=== PATIENT | female | born 1980 | race Caucasian/White ===

== ENCOUNTER 2019-07-06 14:50 | Emergency (ER) | payer OTHER ==
--- NOTE | 2019-07-06 15:17 | ERPHSYRPT ---
- History of Present Illness Time Seen by Provider: 07/06/19 15:10 Source: patient, family Exam Limitations: no limitations Physician History: 6123 days with generalized sickness, nausea, back pain and, chest pain, vaginal spotting. H/O Hematochromatosis Timing/Duration: day(s) (3) Method of Injury: unknown Quality: aching Back Pain Location: T-spine Severity of Pain-Max: moderate Modifying Factors: Improves With: nothing, cold therapy Associated Symptoms: chills, nausea, dizziness, other (Body ache, not feeling good) Allergies/Adverse Reactions: tape Allergy (Severe, Uncoded 05/11/17 08:26) Blisters Home Medications: Acyclovir 200 mg Cap [Zovirax 200 mg ] 200 mg PO BID 03/16/17 [History] Albuterol Sulfate [Ventolin Hfa] 18 gm IH UD 03/16/17 [History] Ascorbate Calcium [Vitamin C] 500 mg PO DAILY 03/16/17 [History] Calcium Carb/Vitamin D3/Vit K1 [Calcium + D Soft Chewable Tab] 1 ea PO BID 03/16 [History] Cetirizine HCl [Zyrtec] 10 mg PO DAILY 03/16/17 [History] Cholecalciferol (Vitamin D3) [Vitamin D] 1,000 unit PO DAILY 03/16/17 [ History] Cyanocobalamin (Vitamin B-12) [Vitamin B-12] 1,000 mcg PO DAILY 03/16/17 [ History] Mometasone/Formoterol [Dulera 200 Mcg/5 Mcg Inhaler] 13 gm [facility] 03/16/17 [ History] Norgestimate-Ethinyl Estradiol [Ortho-Cyclen] 1 each PO DAILY 03/16/17 [History] Polyethylene Glycol 3350 17 gm [Miralax Powder 17GM PACKET] 17 gm PO UD 03/16 [History] Furosemide 20 mg [Lasix 20 mg] 20 mg PO DAILY 06/29/17 [History] Potassium Chloride 20 Meq [Klor-Con 20 MEQ] 20 meq PO DAILY 06/29/17 [History] SUMAtriptan succinate [Imitrex] 100 mg PO UD 06/29/17 [History] Hx Tetanus, Diphtheria Vaccination/Date Given: No Hx Influenza Vaccination/Date Given: Yes Hx Pneumococcal Vaccination/Date Given: Yes - Review of Systems Constitutional: Chills, Fatigue, Weakness, No Fever Eyes: No Symptoms Ears, Nose, & Throat: No Symptoms Respiratory: No Cough, No Dyspnea Cardiac: Chest Pain, No Edema, No Syncope Abdominal/Gastrointestinal: No Abdominal Pain, No Nausea, No Vomiting, No Diarrhea Genitourinary Symptoms: Vaginal Bleeding, No Dysuria Musculoskeletal: Back Pain, No Neck Pain Skin: No Rash Neurological: Dizziness, No Focal Weakness, No Sensory Changes Psychological: No Symptoms Endocrine: No Symptoms Hematologic/Lymphatic: No No Symptoms All Other Systems: Reviewed and Negative - Past Medical History Pertinent Past Medical History: Yes Neurological History: No Pertinent History ENT History: No Pertinent History Cardiac History: No Pertinent History Respiratory History: Asthma, Sleep Apnea Endocrine Medical History: Liver Disease Musculoskeletal History: Arthritis GI Medical History: No Pertinent History History: No Pertinent History Psycho-Social History: No Pertinent History Female Reproductive Disorders: No Pertinent History Other Medical History: HEMOCHROMATOSIS, PSORIASIS - Past Surgical History Past Surgical History: Yes Neuro Surgical History: No Pertinent History Cardiac: No Pertinent History Respiratory: No Pertinent History Gastrointestinal: No Pertinent History Genitourinary: No Pertinent History Musculoskeletal: Orthopedic Surgery Female Surgical History: No Pertinent History Other Surgical History: Right Knee surgery - Social History Smoking Status: Never smoker Exposure to second hand smoke: No Drug Use: none Patient Lives Alone: No - Nursing Vital Signs Nursing Vital Signs: Initial Vital Signs Temperature 98.2 F 07/06/19 15:15 Pulse Rate 75 07/06/19 15:15 Blood Pressure 134/95 07/06/19 15:15 O2 Sat by Pulse Oximetry 100 07/06/19 15:15 Pain Scale Pain Intensity [Neck] 7 Pain Intensity 7 - Physical Exam General Appearance: no apparent distress, alert, other (Obese) Eye Exam: PERRL/EOMI, eyes nml inspection Ears, Nose, Throat Exam: normal ENT inspection Neck Exam: normal inspection, non-tender, supple, full range of motion, No meningismus, No midline tenderness Respiratory Exam: normal breath sounds, lungs clear, No chest tenderness, No respiratory distress Cardiovascular Exam: regular rate/rhythm, normal heart sounds Gastrointestinal Exam: soft, No tenderness, No mass Extremity Exam: normal inspection, normal range of motion, No calf tenderness, No pedal edema Neurologic Exam: alert, oriented x 3, cooperative, dredge mate II-XII nml as tested, normal mood/affect, nml station & gait, sensation nml, No motor deficits Skin Exam: normal color, warm, dry, No rash Lymphatic Exam: No adenopathy SpO2 Interpretation: normal O2 Delivery: Room Air - Course Nursing assessment & vital signs reviewed: Yes EKG Interpreted by Me: Sinus [place], NORMAL AXIS, NORMAL INTERVALS, NORMAL QRS, Q -wave, NORMAL ST-T - CT Exams Abdomen/Pelvis CT Interpretation: Discussed w/radiologist, Other (cconstipation, hiatal hernia , fatty liver, splenomegaly, ovarian cyst, diverticulosis.) Ordered Tests: Active Orders 24 hr Category Date Time Status EKG-ER Only STAT Care 07/06/19 15:23 Active IV Insertion STAT Care 07/06/19 15:23 Active ABDOMEN AND PELVIS W CONTRAST [CT] Stat Exams 07/06/19 15:26 Taken CHEST 1 VIEW (PORTABLE) Stat Exams 07/06/19 15:24 Taken CBC W DIFF Stat Lab 07/06/19 15:50 Completed CMP Stat Lab 07/06/19 15:50 Completed HCG QUALITATIVE,SERUM Stat Lab 07/06/19 Completed LIPASE Stat Lab 07/06/19 15:50 Completed Lactic Acid Stat Lab 07/06/19 15:50 Completed Occult Blood, Other Screening Stat Lab 07/06/19 15:24 Uncollected TROPONIN Stat Lab 07/06/19 15:50 Completed Urine Triage Profile Stat Lab 07/06/19 Completed Medication Summary Generic Name Dose Route Start Last Admin Trade Name Freq PRN Reason Stop Dose Admin Sodium Chloride 1,000 mls @ 250 mls/hr 07/06/19 15:30 07/06/19 16:22 Sodium Chloride 0.9% 1000 Ml IV 08/05/19 15:29 250 mls/hr .Q4H JUSTYNA Administration Discontinued Medications Generic Name Dose Route Start Last Admin Trade Name Freq PRN Reason Stop Dose Admin Morphine Sulfate 2 mg 07/06/19 15:23 07/06/19 16:22 Morphine Sulfate 2 Mg Inj IV 07/06/19 15:24 2 mg STAT ONE Administration Morphine Sulfate Confirm 07/06/19 16:10 Morphine Sulfate 2 Mg Inj Administered 07/06/19 16:11 Dose 2 mg .ROUTE .STK-MED ONE Ondansetron HCl 4 mg 07/06/19 15:23 07/06/19 16:22 Zofran 4 Mg/2 Ml Vial IV 07/06/19 15:24 4 mg STAT ONE Administration Ondansetron HCl Confirm 07/06/19 16:10 Zofran 4 Mg/2 Ml Vial Administered 07/06/19 16:11 Dose 4 mg .ROUTE .STK-MED ONE Lab/Rad Data: Laboratory Result Diagrams 07/06/19 15:50 07/06/19 15:50 Laboratory Results 07/06/19 07/06/19 07/06/19 Range/Units Unknown Unknown Unknown WBC (4.0-10.5) K/mm3 RBC (4.1-5.4) M/mm3 Hgb (12.0-16.0) gm/dl Hct (35-47) % MCV (78-100) fl MCH (26-32) pg MCHC (32-36) g/dl RDW (11.5-14.0) % Plt Count (150-450) K/mm3 MPV (6-9.5) fl Gran % (36.0-66.0) % Eos # (Auto) (0-0.5) Absolute Lymphs (auto) (1.0-4.6) Absolute Monos (auto) (0.0-1.3) Lymphocytes % (24.0-44.0) % Monocytes % (0.0-12.0) % Eosinophils % (0.00-5.0) % Basophils % (0.0-0.4) % Absolute Granulocytes (1.4-6.9) Basophils # (0-0.4) Sodium (137-145) mmol/L Potassium (3.5-5.1) mmol/L Chloride (98-107) mmol/L Carbon Dioxide (22-30) mmol/L Anion Gap (5-15) MEQ/L BUN (7-17) mg/dL Creatinine (0.52-1.04) mg/dL Estimated GFR ML/MIN Glucose (74-106) mg/dL Lactic Acid (0.4-2.0) Calcium (8.4-10.2) mg/dL Total Bilirubin (0.2-1.3) mg/dL AST (14-36) U/L ALT (0-35) U/L Alkaline Phosphatase (38-126) U/L Troponin I (0.000-0.034) ng/mL Serum Total Protein (6.3-8.2) g/dL Albumin (3.5-5.0) g/dL Lipase (23-300) U/L Serum , Qual NEGATIVE (Negative) Urine Opiates Level NEGATIVE (NEGATIVE) Ur Methadone NEGATIVE (NEGATIVE) Urine Barbiturates NEGATIVE (NEGATIVE) Ur Phencyclidine (PCP) NEGATIVE (NEGATIVE) Urine Amphetamine NEGATIVE (NEGATIVE) U Benzodiazepine Level NEGATIVE (NEGATIVE) Urine Cocaine NEGATIVE (NEGATIVE) Urine Marijuana (THC) NEGATIVE (NEGATIVE) Influenza Type A Ag NEGATIVE (NEGATIVE) Influenza Type B Ag NEGATIVE (NEGATIVE) RSV (PCR) NEGATIVE (Negative) Group A Strep Antibody NEGATIVE (NEGATIVE) 07/06/19 07/06/19 07/06/19 Range/Units 15:50 15:50 15:50 WBC 8.2 (4.0-10.5) K/mm3 RBC 4.79 (4.1-5.4) M/mm3 Hgb 14.2 (12.0-16.0) gm/dl Hct 43.1 (35-47) % MCV 90.0 (78-100) fl MCH 29.6 (26-32) pg MCHC 32.9 (32-36) g/dl RDW 13.8 (11.5-14.0) % Plt Count 223 (150-450) K/mm3 MPV 10.6 H (6-9.5) fl Gran % 47.4 (36.0-66.0) % Eos # (Auto) 0.22 (0-0.5) Absolute Lymphs (auto) 3.52 (1.0-4.6) Absolute Monos (auto) 0.49 (0.0-1.3) Lymphocytes % 42.8 (24.0-44.0) % Monocytes % 6.0 (0.0-12.0) % Eosinophils % 2.7 (0.00-5.0) % Basophils % 1.1 (0.0-0.4) % Absolute Granulocytes 3.90 (1.4-6.9) Basophils # 0.09 (0-0.4) Sodium 142 (137-145) mmol/L Potassium 3.5 (3.5-5.1) mmol/L Chloride 104 (98-107) mmol/L Carbon Dioxide 29 (22-30) mmol/L Anion Gap 12.2 (5-15) MEQ/L BUN 10 (7-17) mg/dL Creatinine 0.73 (0.52-1.04) mg/dL Estimated GFR > 60.0 ML/MIN Glucose 91 (74-106) mg/dL Lactic Acid 0.7 (0.4-2.0) Calcium 9.3 (8.4-10.2) mg/dL Total Bilirubin 0.70 (0.2-1.3) mg/dL AST 24 (14-36) U/L ALT 15 (0-35) U/L Alkaline Phosphatase 59 (38-126) U/L Troponin I < 0.012 (0.000-0.034) ng/mL Serum Total Protein 8.2 (6.3-8.2) g/dL Albumin 4.2 (3.5-5.0) g/dL Lipase 141 (23-300) U/L Serum , Qual (Negative) Urine Opiates Level (NEGATIVE) Ur Methadone (NEGATIVE) Urine Barbiturates (NEGATIVE) Ur Phencyclidine (PCP) (NEGATIVE) Urine Amphetamine (NEGATIVE) U Benzodiazepine Level (NEGATIVE) Urine Cocaine (NEGATIVE) Urine Marijuana (THC) (NEGATIVE) Influenza Type A Ag (NEGATIVE) Influenza Type B Ag (NEGATIVE) RSV (PCR) (Negative) Group A Strep Antibody (NEGATIVE) - Progress Progress: improved Progress Note: 07/06/19 18:53 advised patient to follow up with a harvester operator, just silas just, PSYCHOLOGIST RESEARCH ASSISTANT and PCP. 07/06/19 18:57 no life or limb threatening condition on discharge Counseled pt/family regarding: lab results, diagnosis, need for follow-up, rad results - Departure Departure Disposition: Home Clinical Impression: Weakness, Splenomegaly, Hiatal hernia, Fatty liver, Diverticulosis Constipation Qualifiers: Constipation type: unspecified constipation type Qualified Code(s): K59.00 - Constipation, unspecified Ovarian cyst Qualifiers: Laterality: right Qualified Code(s): N83.201 - Unspecified ovarian cyst, right side Condition: Stable Critical Care Time: No Referrals: MONTRELL CAPONE [Primary Care Provider] - Instructions: Constipation in Adults, Hiatal Hernia, Nonalcoholic Fatty Liver Disease (DC), Splenectomy (DC), Diverticulosis Plan of Treatment: [id number] laxative. Take Tylenol or Motrin as needed for pain. Take [id number] Prilosec.
[2019-07-06] MEDS ORDERED: Zofran 4 MG/2 ML VIAL IV ONE (15:23)
[2019-07-06] MEDS ORDERED: MORPHINE SULFATE 2 MG INJ IV ONE (15:23)
[2019-07-06] MEDS ORDERED: Sodium Chloride 0.9% 1000 ML 1,000 ML IV SCH (15:30)
[2019-07-06 16:07] LABS: BASOPHIL % 1.1 % (0.0-0.4); Basophil (Absolute #) 0.09 (0-0.4); Eosinophil % 2.7 % (0.00-5.0); Eosinophil (Absolute #) 0.22 (0-0.5); Hematocrit 43.1 % (35-47); Hemoglobin 14.2 gm/dl (12.0-16.0); Lymphocyte (Absolute #) 3.52 (1.0-4.6); Lymphocytes % 42.8 % (24.0-44.0); Mean Corpuscular Hemoglobin 29.6 pg (26-32); Mean Corpuscular Hgb Concent. 32.9 g/dl (32-36); Mean Platelet Volume 10.6 fl (6-9.5); Monocyte (Absolute #) 0.49 (0.0-1.3); Neutrophil % 47.4 % (36.0-66.0); Platelet Count 223 K/mm3 (150-450); Red Blood Count 4.79 M/mm3 (4.1-5.4); Red Cell Distribution Width 13.8 % (11.5-14.0); White Blood Count 8.2 K/mm3 (4.0-10.5)
[2019-07-06] MEDS ORDERED: Sodium Chloride 0.9% 1000 ML 1,000 ML ONE (16:10)
[2019-07-06] MEDS ORDERED: MORPHINE SULFATE 2 MG INJ ONE (16:10)
[2019-07-06] MEDS ORDERED: Zofran 4 MG/2 ML VIAL ONE (16:10)
[2019-07-06 16:29] LABS: ALBUMIN 4.2 g/dL (3.5-5.0); ALKALINE PHOSPHATASE 59 U/L (38-126); ANION GAP 12.2 MEQ/L (5-15); BLOOD UREA NITROGEN 10 mg/dL (7-17); CHLORIDE 104 mmol/L (98-107); Calcium 9.3 mg/dL (8.4-10.2); Carbon Dioxide 29 mmol/L (22-30); Creatinine 1 0.73 mg/dL (0.52-1.04); Glucose 91 mg/dL (74-106); LIPASE 141 U/L (23-300); Potassium 3.5 mmol/L (3.5-5.1); SGOT/AST 24 U/L (14-36); SGPT/ALT 15 U/L (0-35); SODIUM 142 mmol/L (137-145); TROPONIN < 0.012 ng/mL (0.000-0.034); Total Protein 8.2 g/dL (6.3-8.2)
[2019-07-06 17:25] LABS: Amphetamine,Urine NEGATIVE (NEGATIVE); Barbiturate,Urine NEGATIVE (NEGATIVE); Benzodiazepine,Urine NEGATIVE (NEGATIVE); Cocaine,Urine NEGATIVE (NEGATIVE); Methadone,Urine NEGATIVE (NEGATIVE); Opiate,Urine NEGATIVE (NEGATIVE); PCP,Urine NEGATIVE (NEGATIVE); THC,Urine NEGATIVE (NEGATIVE)
[2019-07-06 17:52] LABS: Group A Strep NEGATIVE (NEGATIVE); INFLUENZA A NEGATIVE (NEGATIVE); INFLUENZA B NEGATIVE (NEGATIVE); RESPIRATORY SYNCTIAL VIRUS NEGATIVE (Negative)
[2019-07-06 18:27] VITALS: BP 136/90; PULSE 70; O2SAT 99
--- NOTE | 2019-07-07 08:40 | XRAY ---
Indication: Chest and back pain. Nausea and vomiting. Multiple contiguous axial images obtained through the abdomen and pelvis using 80 cc Isovue 370 contrast only. Comparison: January 24, 2018. Lung bases remain clear. Heart is not enlarged. Stable small hiatal hernia. Noncontrasted stomach and bowel loops appear nonobstructed. Again normal appendix. There is now mild diffuse scattered colonic fecal debris throughout with stable mild scattered diverticulosis. Again 3.5 cm right ovary cyst. No free fluid/air. Spleen remains enlarged again measuring 13 cm. Remaining liver, gallbladder, pancreas, spleen, adrenal glands, kidneys, ureters, bladder, uterus, and aorta appear unremarkable. No pathologic retroperitoneal lymphadenopathy. Osseous structures intact. Impression: 1. New mild fecal stasis without obstruction. 2. Stable small hiatal hernia, colonic diverticulosis, splenomegaly, and 3.5 cm right ovary cyst. 3. Remaining CT abdomen/pelvis with contrast exam is negative. CT DI 30.37
--- NOTE | 2019-07-07 08:44 | XRAY ---
Indication: Chest pain, weakness, and cold symptoms. Comparison: December 25, 2016. Portable chest again demonstrates normal heart, lungs, and bony thorax.
== END 2019-07-06 19:22 | disposition home or self-care (01) ==
LOC: ED 14:50
DX: K59.00 Constipation, unspecified (principal); N83.201 Unspecified ovarian cyst, right side; R53.1 Weakness; R16.1 Splenomegaly, not elsewhere classified; K44.9 Diaphragmatic hernia without obstruction or gangrene; K76.0 Fatty (change of) liver, not elsewhere classified; K57.90 Diverticulosis of intestine, part unspecified, without perforation or abscess without bleeding; R11.0 Nausea; M54.5 Low back pain; R07.9 Chest pain, unspecified; N93.9 Abnormal uterine and vaginal bleeding, unspecified; Z79.899 Other long term (current) drug therapy
CPT/HCPCS: 36000; 36415; 71045; 74177; 80053; 80307; 81025; 83605; 83690; 84484; 85025; 87631; 87651; 93005; 96360; 96361; 96374; 96375; 99284; J2270; J2405

== ENCOUNTER 2021-01-30 09:08 | Emergency (ER) | payer OTHER ==
[2021-01-30] MEDS ORDERED: MORPHINE SULFATE 4 MG INJ IM ONE (09:57)
--- NOTE | 2021-01-30 10:03 | ERPHSYRPT ---
- History of Present Illness Time Seen by Provider: 01/30/21 09:22 Source: patient Exam Limitations: no limitations Patient Subjective Stated Complaint: pt states she thinks she may be having a reaction to her new med, she took avsola 6-8 weeks ago and now is having sob, p ain and stiffness Triage Nursing Assessment: pt alert, resp easy, face mask in place, skin w/d/p. right leg swollen.in no distress Physician History: 40 years old female with history of psoriasis recently started on infliximab, hemochromatosis, arthritis, lymphedema right lower extremity, morbid obesity, obstructive sleep apnea presented in the ER with 4 to 5-week history of increasing joint aches and pains along with pain all over her body and occasionally getting shortness of breath with using mask on. Patient thinks her symptoms are getting worse since she was placed on infliximab infusion 7 weeks agosupposed to have another infusion early next week. She thinks having allergic reaction to infliximab that all her symptoms are getting worse. No chest pain, shortness of breath at baseline which is a little worse occasionally without permanent symptoms. No recent fever or chills reported. Timing/Duration: week(s), worse Severity: moderate Modifying Factors: Worsens With: medication Associated Symptoms: shortness of breath, malaise Allergies/Adverse Reactions: bee venom protein (honey bee) Allergy (Verified 01/30/21 09:25) methotrexate Allergy (Verified 01/30/21 09:25) tape Allergy (Severe, Uncoded 01/30/21 09:25) Blisters Home Medications: Albuterol Sulfate [Ventolin Hfa] 18 gm IH UD 03/16/17 [History] Calcium Carb/Vitamin D3/Vit K1 [Calcium + D Soft Chewable Tab] 1 ea PO BID 03/16/17 [History] Cetirizine HCl [Zyrtec] 10 mg PO DAILY 03/16/17 [History] Cholecalciferol (Vitamin D3) [Vitamin D] 1,000 unit PO DAILY 03/16/17 [History] Cyanocobalamin (Vitamin B-12) [Vitamin B-12] 1,000 mcg PO DAILY 03/16/17 [History] Mometasone/Formoterol [Dulera 200 Mcg/5 Mcg Inhaler] 13 gm IH HS 03/16/17 [History] Norgestimate-Ethinyl Estradiol [Ortho-Cyclen] 1 each PO DAILY 03/16/17 [History] Furosemide 20 mg [Lasix 20 mg] 20 mg PO DAILY 06/29/17 [History] Potassium Chloride 20 Meq [Klor-Con 20 MEQ] 20 meq PO DAILY 06/29/17 [History] Infliximab-Axxq [Avsola] 1 ea WEEKLY PRN 01/30/21 [History] Hx Tetanus, Diphtheria Vaccination/Date Given: No Hx Influenza Vaccination/Date Given: Yes Hx Pneumococcal Vaccination/Date Given: No Immunizations Up to Date: No Travel Risk - International Travel Have you traveled outside of the country in past 3 weeks: No - Coronavirus Screening Are you exhibiting any of the following symptoms?: No Close contact with a COVID-19 positive Pt in past 14-21 Days: No - Vaccine Status Have you recieved a Covid-19 vaccination: Yes Parquetry Layer: Moderna - Vaccination Dates Date of 2cond Vaccination (if applicable): october 2020 - Review of Systems Constitutional: Fatigue Eyes: No Symptoms Ears, Nose, & Throat: No Symptoms Respiratory: Dyspnea, Dyspnea on Exertion (HODGE) Cardiac: No Symptoms Abdominal/Gastrointestinal: No Symptoms Genitourinary Symptoms: No Symptoms Musculoskeletal: Arthralgias, Joint Pain, Myalgias Skin: Pruritis, Rash Neurological: No Symptoms Psychological: Anxiety Endocrine: No Symptoms Hematologic/Lymphatic: No Symptoms Immunological/Allergic: No Symptoms - Past Medical History Pertinent Past Medical History: Yes Neurological History: No Pertinent History ENT History: No Pertinent History Cardiac History: No Pertinent History Respiratory History: Asthma, Sleep Apnea Endocrine Medical History: Liver Disease Musculoskeletal History: Arthritis GI Medical History: No Pertinent History History: No Pertinent History Psycho-Social History: No Pertinent History Female Reproductive Disorders: No Pertinent History Other Medical History: HEMOCHROMATOSIS, PSORIASIS - Past Surgical History Past Surgical History: Yes Neuro Surgical History: No Pertinent History Cardiac: No Pertinent History Respiratory: No Pertinent History Gastrointestinal: No Pertinent History Genitourinary: No Pertinent History Musculoskeletal: Orthopedic Surgery Female Surgical History: No Pertinent History Other Surgical History: Right Knee surgery - Social History Smoking Status: Never smoker Exposure to second hand smoke: No Drug Use: none Patient Lives Alone: No - Female History Hx Last Menstrual Period: last week Hx Now: No - Nursing Vital Signs Nursing Vital Signs: Initial Vital Signs Temperature 97.2 F 01/30/21 09:16 Pulse Rate 91 H 01/30/21 09:16 Respiratory Rate 24 01/30/21 09:16 Blood Pressure 130/112 01/30/21 09:16 O2 Sat by Pulse Oximetry 98 01/30/21 09:16 Pain Scale Pain Intensity 8 - Physical Exam General Appearance: no apparent distress, alert, anxiety Eye Exam: PERRL/EOMI, eyes nml inspection Ears, Nose, Throat Exam: normal ENT inspection, TMs normal, pharynx normal Neck Exam: normal inspection, non-tender, full range of motion Respiratory Exam: normal breath sounds, lungs clear Cardiovascular Exam: regular rate/rhythm, normal heart sounds Gastrointestinal/Abdomen Exam: soft, normal bowel sounds, No tenderness Back Exam: normal inspection, normal range of motion Extremity Exam: other (Right lower extremity lymphedema. No signs of cellulitis in either extremity. Not definite tenderness.) Neurologic Exam: alert, oriented x 3, cooperative, drafter construction II-XII nml as tested, sensation nml, No motor deficits Skin Exam: rash SpO2 Interpretation: normal SpO2: 98 O2 Delivery: Room Air - Course EKG Interpreted by Me: RATE (65), Sinus Rhythm, NORMAL AXIS, NORMAL INTERVALS Ordered Tests: Active Orders 24 hr Category Date Time Status EKG-ER Only STAT Care 01/30/21 09:57 Active IV Insertion STAT Care 01/30/21 09:57 Active CHEST 1 VIEW (PORTABLE) Stat Exams 01/30/21 09:58 Completed CBC W DIFF Stat Lab 01/30/21 10:23 Completed HCG,QUALITATIVE URINE Routine Lab 01/30/21 10:25 Completed TROPONIN Q3H Lab 01/30/21 13:00 Ordered TROPONIN Q3H Lab 01/30/21 16:00 Ordered TROPONIN Q3H Lab 01/30/21 19:00 Ordered TROPONIN Q3H Lab 01/30/21 22:00 Ordered UA W/RFX UR CULTURE Stat Lab 01/30/21 10:23 Completed Medication Summary Discontinued Medications Generic Name Dose Route Start Last Admin Trade Name Freq PRN Reason Stop Dose Admin Morphine Sulfate 4 mg 01/30/21 09:57 01/30/21 10:15 Morphine Sulfate 4 Mg Inj IM 01/30/21 09:58 4 mg STAT ONE Administration Morphine Sulfate Confirm 01/30/21 10:15 Morphine Sulfate 4 Mg Inj Administered 01/30/21 10:16 Dose 4 mg .ROUTE .STK-MED ONE Lab/Rad Data: Laboratory Result Diagrams 01/30/21 10:23 01/30/21 10:15 Laboratory Results 01/30/21 01/30/21 01/30/21 Range/Units 10:25 10:23 10:23 WBC 6.3 (4.0-10.5) K/mm3 RBC 5.17 (4.1-5.4) M/mm3 Hgb 14.9 (12.0-16.0) gm/dl Hct 46.1 (35-47) % MCV 89.2 (78-100) fl MCH 28.8 (26-32) pg MCHC 32.3 (32-36) g/dl RDW 14.2 H (11.5-14.0) % Plt Count 248 (150-450) K/mm3 MPV 10.2 (7.5-11.0) fl Gran % 56.7 (36.0-66.0) % Eos # (Auto) 0.21 (0-0.5) Absolute Lymphs (auto) 2.06 (1.0-4.6) Absolute Monos (auto) 0.35 (0.0-1.3) Lymphocytes % 32.7 (24.0-44.0) % Monocytes % 5.6 (0.0-12.0) % Eosinophils % 3.3 (0.00-5.0) % Basophils % 1.7 (0.0-0.4) % Absolute Granulocytes 3.57 (1.4-6.9) Basophils # 0.11 (0-0.4) Sodium Direct (138-146) mmol/L Potassium (3.5-4.9) mmol/L Chloride (98-109) mmol/L Carbon Dioxide (24-29) mmol/L Venous BUN (8-26) mg/dL Creatinine (0.6-1.3) mg/dL Glucose (70-105) mg/dL Ionized Calcium (1.12-1.32) mmol/L Troponin (0.00-0.03) ng/mL Urine Color STRAW (YELLOW) Urine Appearance CLEAR (CLEAR) Urine pH 7.0 (5-6) Ur Specific [place] 1.005 (1.005-1.025) Urine Protein NEGATIVE (Negative) Urine Ketones NEGATIVE (NEGATIVE) Urine Blood SMALL (0-5) Nicolas/ul Urine Nitrite NEGATIVE (NEGATIVE) Urine Bilirubin NEGATIVE (NEGATIVE) Urine Urobilinogen NEGATIVE (0-1) mg/dL Ur Leukocyte Esterase NEGATIVE (NEGATIVE) Urine WBC (Auto) 0-2 (0-5) /HPF Urine RBC (Auto) 0-2 (0-2) /HPF U Epithel Cells (Auto) RARE (FEW) /HPF Urine Bacteria (Auto) RARE (NEGATIVE) /HPF Urine Culture Reflexed NO (NO) Urine Glucose NEGATIVE (NEGATIVE) mg/dL Urine HCG, Qual NEGATIVE (Negative) 01/30/21 Range/Units 10:15 WBC (4.0-10.5) K/mm3 RBC (4.1-5.4) M/mm3 Hgb (12.0-16.0) gm/dl Hct (35-47) % MCV (78-100) fl MCH (26-32) pg MCHC (32-36) g/dl RDW (11.5-14.0) % Plt Count (150-450) K/mm3 MPV (7.5-11.0) fl Gran % (36.0-66.0) % Eos # (Auto) (0-0.5) Absolute Lymphs (auto) (1.0-4.6) Absolute Monos (auto) (0.0-1.3) Lymphocytes % (24.0-44.0) % Monocytes % (0.0-12.0) % Eosinophils % (0.00-5.0) % Basophils % (0.0-0.4) % Absolute Granulocytes (1.4-6.9) Basophils # (0-0.4) Sodium Direct 139 (138-146) mmol/L Potassium 3.9 (3.5-4.9) mmol/L Chloride 101 (98-109) mmol/L Carbon Dioxide 31 H (24-29) mmol/L Venous BUN 14 (8-26) mg/dL Creatinine 0.7 (0.6-1.3) mg/dL Glucose 101 (70-105) mg/dL Ionized Calcium 1.17 (1.12-1.32) mmol/L Troponin 0.00 (0.00-0.03) ng/mL Urine Color (YELLOW) Urine Appearance (CLEAR) Urine pH (5-6) Ur Specific [place] (1.005-1.025) Urine Protein (Negative) Urine Ketones (NEGATIVE) Urine Blood (0-5) Nicolas/ul Urine Nitrite (NEGATIVE) Urine Bilirubin (NEGATIVE) Urine Urobilinogen (0-1) mg/dL Ur Leukocyte Esterase (NEGATIVE) Urine WBC (Auto) (0-5) /HPF Urine RBC (Auto) (0-2) /HPF U Epithel Cells (Auto) (FEW) /HPF Urine Bacteria (Auto) (NEGATIVE) /HPF Urine Culture Reflexed (NO) Urine Glucose (NEGATIVE) mg/dL Urine HCG, Qual (Negative) - Progress Progress: improved, re-examined Progress Note: 01/30/21 11:28 40 years old is evaluated for generalized body aches fatigue and tiredness going on for quite some time after she received infliximab infusion. She is given morphine for symptomatic relief, on reevaluation her pain is improved. She has normal white count, grossly unremarkable chemistries. No UTI. Chest x-ray negative for any acute cardiopulmonary findings. I believe patient has symptoms secondary to infliximab plus her anxiety making it more worse. She is advised to follow-up with Dr. Turner a rn care manager to discuss in detail about the continuation of infusions. At this point I do not think patient needs any further work-up in the ER and is stable for discharge with outpatient follow-up. Discussed on symptoms of worsening needing return to ER which she seems understanding. Counseled pt/family regarding: lab results, diagnosis, need for follow-up, rad results - Departure Departure Disposition: Home Clinical Impression: Generalized body aches Asthma Qualifiers: Asthma severity: mild Asthma persistence: intermittent Asthma complication type: unspecified Qualified Code(s): J45.20 - Mild intermittent asthma, uncomplicated Condition: Stable Critical Care Time: No Referrals: MONTRELL LICONA [Primary Care Provider] - (1-2 days for reevaluation) JACQUIE TURNER MD [NON-STAFF PHY W/O PRIVILEGES] - (Call today) Instructions: Adverse Drug Reactions, Adult (DC) Additional Instructions: Drink plenty of fluids. Take Tylenol as needed for pain. Follow-up with your primary care and primary rn care manager for reevaluation. Return to ER for any worsening.
[2021-01-30] MEDS ORDERED: MORPHINE SULFATE 4 MG INJ ONE (10:15)
[2021-01-30 10:23] LABS: Absolute Neutrophil Ct (ANC) 3.57 (1.4-6.9); BASOPHIL % 1.7 % (0.0-0.4); Basophil (Absolute #) 0.11 (0-0.4); Eosinophil % 3.3 % (0.00-5.0); Eosinophil (Absolute #) 0.21 (0-0.5); Hematocrit 46.1 % (35-47); Hemoglobin 14.9 gm/dl (12.0-16.0); Lymphocyte (Absolute #) 2.06 (1.0-4.6); Lymphocytes % 32.7 % (24.0-44.0); Mean Cell Volume 89.2 fl (78-100); Mean Corpuscular Hemoglobin 28.8 pg (26-32); Mean Corpuscular Hgb Concent. 32.3 g/dl (32-36); Mean Platelet Volume 10.2 fl (7.5-11.0); Monocyte (Absolute #) 0.35 (0.0-1.3); Monocytes % 5.6 % (0.0-12.0); Neutrophil % 56.7 % (36.0-66.0); Platelet Count 248 K/mm3 (150-450); Red Blood Count 5.17 M/mm3 (4.1-5.4); Red Cell Distribution Width 14.2 % (11.5-14.0); White Blood Count 6.3 K/mm3 (4.0-10.5)
[2021-01-30 10:33] LABS: Appearance CLEAR (CLEAR); Bacteria RARE /HPF (NEGATIVE); Bilirubin NEGATIVE (NEGATIVE); Blood SMALL Ery/ul (0-5); Epithelial Cells RARE /HPF (FEW); Glucose NEGATIVE (NEGATIVE); Ketones NEGATIVE (NEGATIVE); Leukocyte Esterase NEGATIVE (NEGATIVE); Nitrite NEGATIVE (NEGATIVE); Protein,Urine Dip NEGATIVE (Negative); RBC 0-2 /HPF (0-2); Specific Gravity 1.005 (1.005-1.025); Urobilinogen NEGATIVE mg/dL (0-1); WBC 0-2 /HPF (0-5)
--- NOTE | 2021-01-30 10:42 | XRAY ---
Indication: Short of breath. Comparison: November 06, 2019. Portable chest again demonstrates normal heart, lungs, and bony thorax.
[2021-01-30 10:45] LABS: ISTAT CREA 0.7 mg/dL (0.6-1.3)
[2021-01-30 11:29] VITALS: BP 140/82; PULSE 70
[2021-01-30 11:32] VITALS: O2SAT 98
== END 2021-01-30 11:42 | disposition home or self-care (01) ==
LOC: ED 09:08
DX: J45.20 Mild intermittent asthma, uncomplicated (principal)
CPT/HCPCS: 36415; 71045; 80047; 81001; 84484; 84703; 85025; 93005; 96372; 99284; J2270

== ENCOUNTER 2022-01-06 07:09 | Day surgery (SDC) | payer OTHER ==
[~2022-01-06 07:09] MED LIST: ASTRINGYN 8 GM TP ONE; XYLOCAINE 1%/Epi 1:100000 MDV 20 ML ONE
[2022-01-06] MEDS ORDERED: DUONEB 0.5-3 MG/3 ml Neb IH ONE ×2 (07:10→07:51)
[2022-01-06] MEDS ORDERED: solu-MEDROL IV SCH (07:30)
[2022-01-06] MEDS ORDERED: Lactated Ringers 1,000 ML IV SCH ×2 (07:30)
[2022-01-06] MEDS ORDERED: Pepcid 20 MG VIAL IV SCH (07:30)
[2022-01-06] MEDS ORDERED: Reglan 10 MG/2 ML IV SCH (07:30)
[2022-01-06] MEDS ORDERED: Transderm Scop 1.5MG Patch TOP PRN (07:30)
[2022-01-06] MEDS ORDERED: Reglan 10 MG/2 ML ONE (07:40)
[2022-01-06] MEDS ORDERED: Transderm Scop 1.5MG Patch ONE (07:40)
[2022-01-06] MEDS ORDERED: Pepcid 20 MG VIAL IV ONE (07:40)
[2022-01-06] MEDS ORDERED: Lactated Ringers 1,000 ML IV ONE (07:40)
[2022-01-06] MEDS ORDERED: CEFAZOLIN 2 GM-D5W BAG** 2 GM/50 ML ML IV SCH (08:00)
[2022-01-06 08:16] LABS: ALKALINE PHOSPHATASE 56 U/L (38-126); ANION GAP 12.2 MEQ/L (5-15); BLOOD UREA NITROGEN 16 mg/dL (7-17); CHLORIDE 103 mmol/L (98-107); Calcium 8.6 mg/dL (8.4-10.2); Carbon Dioxide 25 mmol/L (22-30); EST GLOMERULAR FILTRATION RATE > 60.0 ML/MIN; Glucose 88 mg/dL (74-106); Potassium 4.1 mmol/L (3.5-5.1); SGOT/AST 27 U/L (14-36); SGPT/ALT 21 U/L (0-35); SODIUM 137 mmol/L (137-145); Total Protein 7.9 g/dL (6.3-8.2)
[2022-01-06] MEDS ORDERED: Pre-Attached Lta Kit TP ONE (09:02)
[2022-01-06] MEDS ORDERED: Versed 2 MG/2 ML Injection ONE (09:09)
[2022-01-06] MEDS ORDERED: SUBLIMAZE 100 MCG/2 ML ONE (09:10)
[2022-01-06] MEDS ORDERED: PHENYLEPHRINE HCL ONE (09:43)
[2022-01-06] MEDS ORDERED: DIPRIVAN 200 MG/20 ML IV ONE (09:43)
[2022-01-06] MEDS ORDERED: Ephedrine Sulfate 50 MG/ML ONE (09:43)
[2022-01-06] MEDS ORDERED: Zofran 4 MG/2 ML VIAL ONE (09:43)
[2022-01-06 14:14] VITALS: O2SAT 97
[2022-01-06 15:26] VITALS: BP 145/91; PULSE 82
[2022-01-06 19:25] LABS: Appearance CLEAR (CLEAR); Bilirubin NEGATIVE (NEGATIVE); Dipstick done @ ? MAIN LAB; Glucose NEGATIVE (NEGATIVE); Ketones NEGATIVE (NEGATIVE); Nitrite NEGATIVE (NEGATIVE); Ph 6.5 (5-6); Protein,Urine Dip NEGATIVE (Negative); RBC NEGATIVE Ery/ul (0-5); Urobilinogen 0.2 mg/dL (0-1)
--- NOTE | 2022-01-07 11:29 | OP ---
SURGERY DATE/TIME: 01/06/2022911 PREOPERATIVE DIAGNOSIS: Severe cervical dysplasia. POSTOPERATIVE DIAGNOSIS: Severe cervical dysplasia. PROCEDURE: Loop electrosurgical excision procedure (LEEP). SURGEON: Dg Hamm D.O. BOAT FINISHER: Aditi Hwang instructor adjunct surgical technician. ANESTHESIA: Spinal. ESTIMATED BLOOD LOSS: Minimal. COMPLICATIONS: None. INDICATIONS: The risks, benefits, indications and alternatives of the procedure were reviewed with the patient prior to procedure. The patient understood the risk of infection, bleeding, incompetent cervix, pelvic infection associated with this surgery and desires to have this surgery as a possible means to alleviate her current medical condition. DESCRIPTION OF PROCEDURE AND FINDINGS: At this point the patient is taken to the operating room and given spinal anesthesia. Shhe was prepped and draped in the usual sterile fashion. A coated speculum is then placed in the patient's vagina and the cervix was then injected circumferentially with 1% lidocaine with epinephrine. At this point the loop instrument was then used to excise the ectocervical portion where in depth of 7 to 8 mm of tissue that was excised in a right to left motion. An additional 2 to 3 mm of endocervical tissue was excised in a similar fashion in a right to left motion. From this point hemostasis was obtained by placing loop sand conditioner ball on the surface of the cervix and at this point hemostasis was obtained. Monsel solution was placed on the surface as well. From this point all instruments were then removed from the patient's vaginal region. The patient was taken out of the dorsal lithotomy position and was taken to the recovery room in stable condition. All instruments and laps were accounted for x2.
== END 2022-01-06 15:45 | disposition home or self-care (01) ==
LOC: SDC 07:09
PROVIDERS: ATTEND Obstetrics & Gynecology
DX: D06.9 Carcinoma in situ of cervix, unspecified (principal)
CPT/HCPCS: 36415; 57522; 80053; 81001; 84703; 87086; 94640; J0690; J2250; J2370; J2405; J2704; J2930; J3010; A9270-GY

== ENCOUNTER 2022-01-11 13:42 | Emergency (ER) | payer OTHER ==
[2022-01-11] MEDS ORDERED: BABY ASPIRIN 81 MG CHEW PO ONE (14:01)
--- NOTE | 2022-01-11 14:01 | ERPHSYRPT ---
- History of Present Illness Time Seen by Provider: 01/11/22 13:50 Historian: patient Exam Limitations: no limitations Patient Subjective Stated Complaint: Pt states "I was working and my chest started to hurt all of a sudden and I am short of breath." Triage Nursing Assessment: PT presented alert and oriented X3, skin wpd Pt ambulates with an upright limp gait. Pt able to speak in clear full sentences. PT slightly tachypneic, holding her upper abdomen. Physician History: This is a morbidly obese 41-year-old white female patient who has multiple medical problems including psoriasis, hemochromatosis, arthritis, lymphedema, sleep apnea, asthma and presents with 2-day history of cough, runny nose, nasal congestion, shortness of breath and chest pain. The pain is an ache that is substernal and central without radiation. He has had no fever. She denies nausea vomiting or diarrhea. She has no history of documented coronary artery disease. She went to work today and because of her symptoms she was told to c ome to the emergency department for evaluation. Timing/Duration: yesterday Activities at Onset: none Quality: pressure Location: substernal, central Chest Pain Radiation: no radiation Severity of Pain-Max: mild Severity of Pain-Current: mild Modifying Factors: Improves With: coughing Associated Symptoms: shortness of breath, cough, No nausea, No vomiting, No abdominal pain, No fever Prior Chest Pain/Cardiac Workup: no prior chest pain, no prior cardiac workup Nitro Today/Relief: no nitro taken today Aspirin Treatment Today: no aspirin today Allergies/Adverse Reactions: bee venom protein (honey bee) Allergy (Verified 01/30/21 09:25) methotrexate Allergy (Verified 01/30/21 09:25) tape Allergy (Severe, Uncoded 01/30/21 09:25) Blisters Home Medications: Calcium Carb/Vitamin D3/Vit K1 [Calcium + D Soft Chewable Tab] 1 ea PO DAILY 0 03/16/17 [History] Cetirizine HCl [Zyrtec] 10 mg PO DAILY 03/16/17 [History] Cholecalciferol (Vitamin D3) [Vitamin D] 1,000 unit PO DAILY 03/16/17 [History] Cyanocobalamin (Vitamin B-12) [Vitamin B-12] 1,000 mcg PO DAILY 07/18/17 [History] Albuterol 8 gm Mdi Hfa [Ventolin Hfa MDI] 2 puffs IH DAILY PRN PRN 01/01/22 [History] Ascorbic Acid [Vitamin C] 500 mg PO DAILY 01/01/22 [History] Fluticasone Propionate cc [Flovent 110 Mcg COMMON CANISTER] 2 puff IH DAILY 01/01/22 [History] Infliximab [Remicade Injection] 800 mg IV DIRECTIONS UNKNOWN 01/01/22 [History] Lysine [l-Lysine] 600 mg PO DAILY 01/01/22 [History] Montelukast Sodium 10 mg [Singulair 10 MG] 10 mg PO DAILY 01/01/22 [History] Fluticasone/Vilanterol [Breo Ellipta 200-25 Mcg INH] 1 blist IH DAILY 01/06/22 [History] Hx Tetanus, Diphtheria Vaccination/Date Given: No Hx Influenza Vaccination/Date Given: Yes Hx Pneumococcal Vaccination/Date Given: No Immunizations Up to Date: Yes Travel Risk - International Travel Have you traveled outside of the country in past 3 weeks: No - Coronavirus Screening Are you exhibiting any of the following symptoms?: No Close contact with a COVID-19 positive Pt in past 14-21 Days: No - Vaccine Status Have you recieved a Covid-19 vaccination: Yes Vp Director Of Finance: Moderna - Vaccination Dates Date of 2cond Vaccination (if applicable): october 2020 - Review of Systems Constitutional: No Symptoms Eyes: No Symptoms Ears, Nose, & Throat: Nose Congestion, Nose Discharge Respiratory: Cough (We are), Dyspnea (With coughing) Cardiac: Chest Pain (With coughing) Abdominal/Gastrointestinal: No Symptoms Genitourinary Symptoms: No Symptoms Musculoskeletal: No Symptoms Skin: No Symptoms Neurological: No Symptoms Psychological: No Symptoms Endocrine: No Symptoms Hematologic/Lymphatic: No Symptoms Immunological/Allergic: No Symptoms All Other Systems: Reviewed and Negative - Past Medical History Pertinent Past Medical History: Yes Neurological History: No Pertinent History ENT History: No Pertinent History Cardiac History: No Pertinent History Respiratory History: Asthma, Sleep Apnea Endocrine Medical History: Liver Disease Musculoskeletal History: Arthritis GI Medical History: GERD History: No Pertinent History Psycho-Social History: No Pertinent History Female Reproductive Disorders: No Pertinent History Other Medical History: HEMOCHROMATOSIS, PSORIASIS - Past Surgical History Past Surgical History: Yes Neuro Surgical History: No Pertinent History Cardiac: No Pertinent History Respiratory: No Pertinent History Gastrointestinal: No Pertinent History Genitourinary: No Pertinent History Musculoskeletal: Orthopedic Surgery Female Surgical History: No Pertinent History Other Surgical History: Right Knee surgery. LEAP on 01/06/2022 - Social History Smoking Status: Never smoker Exposure to second hand smoke: No Drug Use: none Patient Lives Alone: No - Female History Hx Last Menstrual Period: 12/12/2021 Hx Now: No - Nursing Vital Signs Nursing Vital Signs: Initial Vital Signs Temperature 97.1 F 01/11/22 13:42 Pulse Rate 110 H 01/11/22 13:42 Respiratory Rate 24 01/11/22 13:42 Blood Pressure 125/84 01/11/22 13:42 O2 Sat by Pulse Oximetry 99 01/11/22 13:42 Pain Scale Pain Intensity 2 - Physical Exam General Appearance: no apparent distress, alert, anxiety, obese Eye Exam: PERRL/EOMI, eyes nml inspection Ears, Nose, Throat Exam: normal ENT inspection, moist mucous membranes Neck Exam: normal inspection, non-tender, supple, full range of motion Respiratory Exam: normal breath sounds, chest tenderness (With coughing), lungs clear, airway intact, No respiratory distress Cardiovascular Exam: tachycardia (Mild) Gastrointestinal/Abdomen Exam: soft, normal bowel sounds, No tenderness Pelvic Exam: not done Rectal Exam: not done Back Exam: normal inspection Extremity Exam: normal inspection Neurologic Exam: alert, oriented x 3, cooperative, 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 Today's EKG shows slight sinus tachycardia with a heart rate of 101. This is sl ightly different from EKG dated 01/30/2021 which showed sinus rhythm with a heart rate of 65) Ordered Tests: Active Orders 24 hr Category Date Time Status Gripper Machine Operator STAT Care 01/11/22 14:01 Active EKG-ER Only STAT Care 01/11/22 14:01 Active IV Insertion STAT Care 01/11/22 14:01 Active Pulse Oximetry (ED) STAT Care 01/11/22 14:01 Active CHEST 1 VIEW (PORTABLE) Stat Exams 01/11/22 14:14 Taken CBC W DIFF Stat Lab 01/11/22 14:15 Completed CMP Stat Lab 01/11/22 14:15 Completed D-DIMER QUANTITATIVE Stat Lab 01/11/22 14:15 Completed NT PRO BNP Stat Lab 01/11/22 14:15 Completed TROPONIN Q3H Lab 01/11/22 14:15 Completed TROPONIN Q3H Lab 01/11/22 17:15 Ordered TROPONIN Q3H Lab 01/11/22 20:15 Ordered TROPONIN Q3H Lab 01/11/22 23:15 Ordered TROPONIN Q3H Lab 01/12/22 02:15 Ordered Medication Summary Discontinued Medications Generic Name Dose Route Start Last Admin Trade Name Freq PRN Reason Stop Dose Admin Aspirin 324 mg 01/11/22 14:01 01/11/22 14:39 Aspirin 81 Mg Tab.Chew PO 01/11/22 14:02 324 mg STAT ONE Administration Aspirin Confirm 01/11/22 14:40 Aspirin 81 Mg Tab.Chew Administered 01/11/22 14:41 Dose 324 mg .ROUTE .STK-MED ONE Lab/Rad Data: Laboratory Result Diagrams 01/11/22 14:15 01/11/22 14:15 Laboratory Results 01/11/22 01/11/22 01/11/22 Range/Units 14:15 14:15 14:15 WBC (4.0-10.5) K/mm3 RBC (4.1-5.4) M/mm3 Hgb (12.0-16.0) gm/dl Hct (35-47) % MCV (78-100) fl MCH (26-32) pg MCHC (32-36) g/dl RDW (11.5-14.0) % Plt Count (150-450) K/mm3 MPV (7.5-11.0) fl Gran % (36.0-66.0) % Eos # (Auto) (0-0.5) Absolute Lymphs (auto) (1.0-4.6) Absolute Monos (auto) (0.0-1.3) Lymphocytes % (24.0-44.0) % Monocytes % (0.0-12.0) % Eosinophils % (0.00-5.0) % Basophils % (0.0-0.4) % Absolute Granulocytes (1.4-6.9) Basophils # (0-0.4) D-Dimer 519 H* (215-500) ng/mL Sodium (137-145) mmol/L Potassium (3.5-5.1) mmol/L Chloride (98-107) mmol/L Carbon Dioxide (22-30) mmol/L Anion Gap (5-15) MEQ/L BUN (7-17) mg/dL Creatinine (0.52-1.04) mg/dL Estimated GFR ML/MIN Glucose (74-106) mg/dL Calcium (8.4-10.2) mg/dL Total Bilirubin (0.2-1.3) mg/dL AST (14-36) U/L ALT (0-35) U/L Alkaline Phosphatase (38-126) U/L Troponin I < 0.012 (0.000-0.034) ng/mL NT-Pro-B Natriuret Pep (0-450) pg/mL Serum Total Protein (6.3-8.2) g/dL Albumin (3.5-5.0) g/dL Influenza Type A Ag POSITIVE (NEGATIVE) Influenza Type B Ag NEGATIVE (NEGATIVE) RSV (PCR) NEGATIVE (Negative) SARS-CoV-2 (PCR) NEGATIVE (NEGATIVE) Group A Strep Antibody NOT DETECTED (NEGATIVE) 01/11/22 01/11/22 Range/Units 14:15 14:15 WBC 5.1 (4.0-10.5) K/mm3 RBC 4.63 (4.1-5.4) M/mm3 Hgb 13.7 (12.0-16.0) gm/dl Hct 41.7 (35-47) % MCV 90.1 (78-100) fl MCH 29.6 (26-32) pg MCHC 32.9 (32-36) g/dl RDW 13.3 (11.5-14.0) % Plt Count 213 (150-450) K/mm3 MPV 11.1 H (7.5-11.0) fl Gran % 75.4 H (36.0-66.0) % Eos # (Auto) 0.14 (0-0.5) Absolute Lymphs (auto) 0.58 L (1.0-4.6) Absolute Monos (auto) 0.50 (0.0-1.3) Lymphocytes % 11.3 L (24.0-44.0) % Monocytes % 9.8 (0.0-12.0) % Eosinophils % 2.7 (0.00-5.0) % Basophils % 0.8 (0.0-0.4) % Absolute Granulocytes 3.86 (1.4-6.9) Basophils # 0.04 (0-0.4) D-Dimer (215-500) ng/mL Sodium 135 L (137-145) mmol/L Potassium 4.0 (3.5-5.1) mmol/L Chloride 99 (98-107) mmol/L Carbon Dioxide 28 (22-30) mmol/L Anion Gap 12.4 (5-15) MEQ/L BUN 13 (7-17) mg/dL Creatinine 0.62 (0.52-1.04) mg/dL Estimated GFR > 60.0 ML/MIN Glucose 76 (74-106) mg/dL Calcium 8.7 (8.4-10.2) mg/dL Total Bilirubin 0.50 (0.2-1.3) mg/dL AST 24 (14-36) U/L ALT 20 (0-35) U/L Alkaline Phosphatase 66 (38-126) U/L Troponin I (0.000-0.034) ng/mL NT-Pro-B Natriuret Pep 31.3 (0-450) pg/mL Serum Total Protein 7.3 (6.3-8.2) g/dL Albumin 3.9 (3.5-5.0) g/dL Influenza Type A Ag (NEGATIVE) Influenza Type B Ag (NEGATIVE) RSV (PCR) (Negative) SARS-CoV-2 (PCR) (NEGATIVE) Group A Strep Antibody (NEGATIVE) - Progress Progress: improved Air Movement: good Progress Note: 01/11/22 15:35 This patient has influenza a infection. We will provide her with Tamiflu now and a intravenous dose of steroids. We will check her chest x-ray to make sure there is or is not an associated pneumonia. 01/11/22 15:38 Chest x-ray shows no acute cardiopulmonary process. Blood Culture(s) Obtained: No Antibiotics given: No Counseled pt/family regarding: lab results, diagnosis, need for follow-up, rad results - Departure Departure Disposition: Home Clinical Impression: Influenza A H1N1 infection Condition: Stable Critical Care Time: No Referrals: MONTRELL THAPA [Primary Care Provider] - Follow up/PCP as directed Additional Instructions: Drink plenty of fluids. Take your prescriptions as prescribed. Follow-up with your primary care provider for further evaluation management. Prescriptions: Prednisone 10 mg [Deltasone 10 mg] 10 mg PO TID #12 tablet Oseltamivir 75 mg [Tamiflu 75MG Capsule] 75 mg PO BID #10 cap
[2022-01-11] MEDS ORDERED: BABY ASPIRIN 81 MG CHEW ONE (14:40)
[2022-01-11 14:42] LABS: Absolute Neutrophil Ct (ANC) 3.86 (1.4-6.9); Basophil (Absolute #) 0.04 (0-0.4); Eosinophil % 2.7 % (0.00-5.0); Eosinophil (Absolute #) 0.14 (0-0.5); Hematocrit 41.7 % (35-47); Hemoglobin 13.7 gm/dl (12.0-16.0); Lymphocyte (Absolute #) 0.58 (1.0-4.6); Lymphocytes % 11.3 % (24.0-44.0); Mean Cell Volume 90.1 fl (78-100); Mean Corpuscular Hemoglobin 29.6 pg (26-32); Mean Corpuscular Hgb Concent. 32.9 g/dl (32-36); Mean Platelet Volume 11.1 fl (7.5-11.0); Monocytes % 9.8 % (0.0-12.0); Neutrophil % 75.4 % (36.0-66.0); Platelet Count 213 K/mm3 (150-450); Red Blood Count 4.63 M/mm3 (4.1-5.4); Red Cell Distribution Width 13.3 % (11.5-14.0); White Blood Count 5.1 K/mm3 (4.0-10.5)
[2022-01-11 15:00] LABS: ALBUMIN 3.9 g/dL (3.5-5.0); ALKALINE PHOSPHATASE 66 U/L (38-126); ANION GAP 12.4 MEQ/L (5-15); BLOOD UREA NITROGEN 13 mg/dL (7-17); CHLORIDE 99 mmol/L (98-107); Calcium 8.7 mg/dL (8.4-10.2); Carbon Dioxide 28 mmol/L (22-30); Creatinine 1 0.62 mg/dL (0.52-1.04); EST GLOMERULAR FILTRATION RATE > 60.0 ML/MIN; Glucose 76 mg/dL (74-106); SGOT/AST 24 U/L (14-36); SGPT/ALT 20 U/L (0-35); SODIUM 135 mmol/L (137-145); Total Protein 7.3 g/dL (6.3-8.2)
[2022-01-11 15:05] LABS: Group A Strep NOT DETECTED (NEGATIVE)
[2022-01-11 15:14] LABS: NT PRO BNP 31.3 pg/mL (0-450)
[2022-01-11 15:16] LABS: INFLUENZA B NEGATIVE (NEGATIVE); RESPIRATORY SYNCTIAL VIRUS NEGATIVE (Negative); SARS-CoV-2 Xpert Express NEGATIVE (NEGATIVE)
[2022-01-11 15:18] LABS: INFLUENZA A POSITIVE (NEGATIVE)
[2022-01-11 15:37] VITALS: O2SAT 99
[2022-01-11] MEDS ORDERED: Tamiflu 75MG Capsule PO ONE ×2 (15:39→16:00)
[2022-01-11] MEDS ORDERED: solu-MEDROL 125 MG, Sterile H2O 10 ml 2 ML IV ONE ×2 (15:39)
[2022-01-11] MEDS ORDERED: solu-MEDROL ONE (16:00)
[2022-01-11] MEDS ORDERED: Sterile H2O 10 ml IJ ONE (16:00)
[2022-01-11 16:06] VITALS: BP 119/72; PULSE 98
--- NOTE | 2022-01-11 18:19 | XRAY ---
Indication: Chest pain, cough, and short of breath. Comparison: January 30, 2021. Portable chest again demonstrates normal heart and lungs. Bony thorax intact. No new/acute findings.
== END 2022-01-11 16:23 | disposition home or self-care (01) ==
LOC: ED 13:42
DX: J10.1 Influenza due to other identified influenza virus with other respiratory manifestations (principal); R07.9 Chest pain, unspecified; R05.1 Acute cough; R09.81 Nasal congestion; R06.02 Shortness of breath; E83.119 Hemochromatosis, unspecified; Z79.899 Other long term (current) drug therapy; Z79.52 Long term (current) use of systemic steroids
CPT/HCPCS: 0241U; 36000; 36415; 71045; 80053; 83880; 84484; 85025; 85379; 87651; 93005; 93041; 94760; 96374; 99284; J2930; A9270-GY

== ENCOUNTER 2022-08-11 11:12 | Emergency (ER) | payer OTHER ==
--- NOTE | 2022-08-11 11:16 | ERPHSYRPT ---
- History of Present Illness Time Seen by Provider: 08/11/22 11:16 Source: patient Exam Limitations: no limitations Physician History: This is a 41-year-old obese white female patient of Dr. Clovis Rojo who has a history of asthma and sleep apnea as well as gastroesophageal reflux disease. In June, the patient was diagnosed with COVID. Approximately 2 weeks ago the patient was diagnosed with influenza A. In the last couple of weeks she has had persistent coughing spells. She feels as though she is not getting better. She has no chest pain at this time. She has no abdominal pain. She has had no vomiting or diarrhea. Although, she does states she had a coughing spell this morning that brought up greenish phlegm and she was gagging almost to the point of vomiting. She has not had a fever. Timing/Duration: week(s) (2) Cough Quality/Degree: moderate, productive cough (Greenish phlegm) Possible Cause: occasional episodes Modifying Factors: Improves With: coughing Associated Symptoms: cough, shortness of breath (With coughing), wheezing Allergies/Adverse Reactions: bee venom protein (honey bee) Allergy (Verified 08/11/22 11:18) methotrexate Allergy (Verified 08/11/22 11:18) tape Allergy (Severe, Uncoded 08/11/22 11:18) Blisters Home Medications: Calcium Carb/Vitamin D3/Vit K1 [Calcium + D Soft Chewable Tab] 1 ea PO DAILY 03/16/17 [History] Cetirizine HCl [Zyrtec] 10 mg PO DAILY 03/16/17 [History] Cyanocobalamin (Vitamin B-12) [Vitamin B-12] 1,000 mcg PO DAILY 03/16/17 [History] Albuterol 8 gm Mdi Hfa [Ventolin Hfa MDI] 2 puffs IH DAILY PRN PRN 01/01/22 [History] Ascorbic Acid [Vitamin C] 500 mg PO DAILY 01/01/22 [History] Infliximab [Remicade Injection] 800 mg IV DIRECTIONS UNKNOWN 01/01/22 [History] Lysine [l-Lysine] 600 mg PO DAILY 01/01/22 [History] Montelukast Sodium 10 mg [Singulair 10 MG] 10 mg PO DAILY 01/01/22 [History] Fluticasone/Vilanterol [Breo Ellipta 200-25 Mcg INH] 1 blist IH DAILY 01/06/22 [History] Hx Tetanus, Diphtheria Vaccination/Date Given: No Hx Influenza Vaccination/Date Given: Yes Hx Pneumococcal Vaccination/Date Given: No Travel Risk - International Travel Have you traveled outside of the country in past 3 weeks: No - Coronavirus Screening Are you exhibiting any of the following symptoms?: Yes Symptoms: Cough: New Onset, Shortness of Breath - Vaccine Status Have you recieved a Covid-19 vaccination: Yes Favor Maker: Moderna - Vaccination Dates Date of 2cond Vaccination (if applicable): october 2020 - Review of Systems Constitutional: No Symptoms Eyes: No Symptoms Ears, Nose, & Throat: No Symptoms Respiratory: Cough Cardiac: No Symptoms Abdominal/Gastrointestinal: No Symptoms Genitourinary Symptoms: No Symptoms Musculoskeletal: No Symptoms Skin: No Symptoms Neurological: No Symptoms Psychological: No Symptoms Endocrine: No Symptoms Hematologic/Lymphatic: No Symptoms Immunological/Allergic: No Symptoms All Other Systems: Reviewed and Negative - Past Medical History Pertinent Past Medical History: Yes Neurological History: No Pertinent History ENT History: No Pertinent History Cardiac History: No Pertinent History Respiratory History: Asthma, Sleep Apnea Endocrine Medical History: Liver Disease Musculoskeletal History: Arthritis GI Medical History: GERD History: No Pertinent History Psycho-Social History: No Pertinent History Female Reproductive Disorders: No Pertinent History Other Medical History: HEMOCHROMATOSIS, PSORIASIS - Past Surgical History Past Surgical History: Yes Neuro Surgical History: No Pertinent History Cardiac: No Pertinent History Respiratory: No Pertinent History Gastrointestinal: No Pertinent History Genitourinary: No Pertinent History Musculoskeletal: Orthopedic Surgery Female Surgical History: No Pertinent History Other Surgical History: Right Knee surgery. LEAP on 01/06/2022 - Social History Smoking Status: Never smoker Exposure to second hand smoke: No Drug Use: none Patient Lives Alone: No - Nursing Vital Signs Nursing Vital Signs: Initial Vital Signs Temperature 98.0 F 08/11/22 11:15 Pulse Rate 102 H 08/11/22 11:15 Respiratory Rate 08/11/22 11:15 Blood Pressure 137/91 08/11/22 11:15 O2 Sat by Pulse Oximetry 97 08/11/22 11:15 Pain Scale Pain Intensity 8 - Physical Exam General Appearance: no apparent distress, alert, anxiety, obese Eye Exam: PERRL/EOMI, eyes nml inspection Ears, Nose, Throat Exam: normal ENT inspection, moist mucous membranes Neck Exam: normal inspection, non-tender, supple, full range of motion Respiratory Exam: airway intact, wheezing (Right lung expiratory wheezing), No chest tenderness, No respiratory distress Cardiovascular Exam: regular rate/rhythm, normal heart sounds, normal peripheral pulses Gastrointestinal/Abdomen Exam: soft, normal bowel sounds, No tenderness Pelvic Exam: not done Rectal Exam: not done Back Exam: normal inspection, normal range of motion, No CVA tenderness, No vertebral tenderness Extremity Exam: normal inspection, normal range of motion, pelvis stable Neurologic Exam: alert, oriented x 3, 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, 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, normal mood/affect, nml cerebellar function, nml station & gait, sensation nml Skin Exam: normal color, warm, dry Lymphatic Exam: No adenopathy SpO2 Interpretation: normal O2 Delivery: Room Air - Course Nursing assessment & vital signs reviewed: Yes Ordered Tests: Active Orders 24 hr Category Date Time Status CHEST 1 VIEW (PORTABLE) Stat Exams 08/11/22 11:37 Completed CBC W DIFF Stat Lab 08/11/22 11:51 Completed CMP Stat Lab 08/11/22 11:51 Completed D-DIMER QUANTITATIVE Stat Lab 08/11/22 11:51 Completed Respiratory Therapy Assessment DAILY RT 08/11/22 11:42 Active Medication Summary Discontinued Medications Generic Name Dose Route Start Last Admin Trade Name Freq PRN Reason Stop Dose Admin Albuterol Sulfate Confirm 08/11/22 11:40 Albuterol Sulfate 2.5 Mg/3 Ml Neb Administered 08/11/22 11:41 Dose 2.5 mg IH .STK-MED ONE Albuterol Sulfate 2.5 mg 08/11/22 11:41 08/11/22 11:42 Albuterol Sulfate 2.5 Mg/3 Ml Neb IH 08/11/22 11:42 2.5 mg STAT ONE Administration Lab/Rad Data: Laboratory Result Diagrams 08/11/22 11:51 08/11/22 11:51 Laboratory Results 08/11/22 08/11/22 08/11/22 Range/Units 11:51 11:51 11:51 WBC 9.9 (4.0-10.5) x10^3/uL RBC 4.75 (4.1-5.4) x10^6/uL Hgb 13.6 (12.0-16.0) g/dL Hct 42.4 (35-47) % MCV 89.3 (78-100) fL MCH 28.6 (26-32) pg MCHC 32.1 (32-36) g/dL RDW 13.0 (11.5-14.0) % Plt Count 184 (150-450) x10^3/uL MPV 11.0 (7.5-11.0) fL Gran % 78.4 H (36.0-66.0) % Immature Gran % (Auto) 0.5 H (0.00-0.4) % Nucleat RBC Rel Count 0.0 (0.00-0.1) % Eos # (Auto) 0.08 (0-0.5) x10^3/uL Immature Gran # (Auto) 0.05 H (0.00-0.03) x10^3u/L Absolute Lymphs (auto) 1.43 (1.0-4.6) x10^3/uL Absolute Monos (auto) 0.56 (0.0-1.3) x10^3/uL Absolute Nucleated RBC 0.00 (0.00-0.01) x10^3u/L Lymphocytes % 14.4 L (24.0-44.0) % Monocytes % 5.7 (0.0-12.0) % Eosinophils % 0.8 (0.00-5.0) % Basophils % 0.2 (0.0-0.4) % Absolute Granulocytes 7.77 H (1.4-6.9) x10^3/uL Basophils # 0.02 (0-0.4) x10^3/uL D-Dimer 0.37 (0.0-0.50) mg/L Sodium 137 (137-145) mmol/L Potassium 4.0 (3.5-5.1) mmol/L Chloride 104 (98-107) mmol/L Carbon Dioxide 26 (22-30) mmol/L Anion Gap 12.3 (5-15) MEQ/L BUN 9 (7-17) mg/dL Creatinine 0.64 (0.52-1.04) mg/dL Estimated GFR > 60.0 ML/MIN Glucose 104 (74-106) mg/dL Calcium 8.8 (8.4-10.2) mg/dL Total Bilirubin 1.10 (0.2-1.3) mg/dL AST 27 (14-36) U/L ALT 22 (0-35) U/L Alkaline Phosphatase 79 (38-126) U/L Serum Total Protein 7.7 (6.3-8.2) g/dL Albumin 4.1 (3.5-5.0) g/dL - Progress Progress: unchanged Air Movement: good Progress Note: 08/11/22 12:22 Chest x-ray shows a new subtle hazy left base interstitial alveolar opacity. Blood Culture(s) Obtained: No Antibiotics given: Yes Counseled pt/family regarding: lab results, diagnosis, need for follow-up, rad results - Departure Departure Disposition: Home Clinical Impression: Left pulmonary infiltrate on CXR Condition: Stable Critical Care Time: No Referrals: MONTRELL THAPA [Primary Care Provider] - Follow up/PCP as directed Additional Instructions: Take your medication as prescribed. Follow-up with your primary care physician for further evaluation management. Forms: Work/School Release Form Prescriptions: Hydrocodone/Acetaminophen [Hydrocodone-Acetamn 7.5-325/15] 10 ml PO Q8H PRN PRN #120 ml MDD 30 ml PRN Reason: Cough Prednisone 10 mg [Deltasone 10 mg] 10 mg PO TID #12 tablet Azithromycin 250 mg [Zithromax 250 MG TABLET] 250 mg PO ZPACK #6 tablet
[2022-08-11] MEDS ORDERED: PROVENTIL 2.5 MG/3 ML NEB IH ONE ×2 (11:40→11:41)
[2022-08-11 11:54] LABS: Absolute Neutrophil Ct (ANC) 7.77 x10^3/uL (1.4-6.9); Basophil (Absolute #) 0.02 x10^3/uL (0-0.4); Eosinophil % 0.8 % (0.00-5.0); Eosinophil (Absolute #) 0.08 x10^3/uL (0-0.5); Hematocrit 42.4 % (35-47); Hemoglobin 13.6 g/dL (12.0-16.0); Lymphocyte (Absolute #) 1.43 x10^3/uL (1.0-4.6); Lymphocytes % 14.4 % (24.0-44.0); Mean Cell Volume 89.3 fL (78-100); Mean Corpuscular Hemoglobin 28.6 pg (26-32); Mean Corpuscular Hgb Concent. 32.1 g/dL (32-36); Monocyte (Absolute #) 0.56 x10^3/uL (0.0-1.3); Monocytes % 5.7 % (0.0-12.0); Neutrophil % 78.4 % (36.0-66.0); Platelet Count 184 x10^3/uL (150-450); Red Blood Count 4.75 x10^6/uL (4.1-5.4); White Blood Count 9.9 x10^3/uL (4.0-10.5)
[2022-08-11 12:09] LABS: ALBUMIN 4.1 g/dL (3.5-5.0); ALKALINE PHOSPHATASE 79 U/L (38-126); ANION GAP 12.3 MEQ/L (5-15); BLOOD UREA NITROGEN 9 mg/dL (7-17); CHLORIDE 104 mmol/L (98-107); Calcium 8.8 mg/dL (8.4-10.2); Carbon Dioxide 26 mmol/L (22-30); Creatinine 1 0.64 mg/dL (0.52-1.04); EST GLOMERULAR FILTRATION RATE > 60.0 ML/MIN; Glucose 104 mg/dL (74-106); SGOT/AST 27 U/L (14-36); SGPT/ALT 22 U/L (0-35); SODIUM 137 mmol/L (137-145); Total Protein 7.7 g/dL (6.3-8.2)
--- NOTE | 2022-08-11 12:16 | XRAY ---
Indication: Persistent cough. Comparison: January 11, 2022 Portable chest demonstrates new subtle hazy left base interstitial alveolar opacity. Remaining heart and lungs unremarkable. Bony thorax intact.
[2022-08-11] MEDS ORDERED: Rocephin 1000 MG INJ IM ONE (12:28)
[2022-08-11] MEDS ORDERED: solu-MEDROL 125 MG, Sterile H2O 10 ml 2 ML IM ONE ×2 (12:28)
[2022-08-11] MEDS ORDERED: XYLOCAINE 1% HCL 20 ML MDV ONE (12:38)
[2022-08-11] MEDS ORDERED: solu-MEDROL ONE (12:38)
[2022-08-11] MEDS ORDERED: Sterile H2O 10 ml IJ ONE (12:38)
[2022-08-11] MEDS ORDERED: Rocephin 1000 MG INJ ONE (12:38)
[2022-08-11 13:41] VITALS: BP 124/80; PULSE 70; O2SAT 96
== END 2022-08-11 13:43 | disposition home or self-care (01) ==
LOC: ED 11:12
DX: R91.8 Other nonspecific abnormal finding of lung field (principal); R05.3 Chronic cough; Z86.16 Personal history of COVID-19; Z79.891 Long term (current) use of opiate analgesic; Z79.52 Long term (current) use of systemic steroids; Z79.899 Other long term (current) drug therapy
CPT/HCPCS: 36415; 71045; 80053; 85025; 85379; 94640; 96372; 99283; J0696; J2930; J7609; A9270-GY

== ENCOUNTER 2023-10-13 13:57 | Day surgery (SDC) | payer OTHER ==
[2023-10-13] MEDS ORDERED: XYLOCAINE-MPF 1% 5ML SDV IJ ONE (13:58)
[2023-10-13] MEDS ORDERED: Sodium Chloride 0.9(Preservative Free) 10 ML IJ ONE (13:58)
[2023-10-13] MEDS ORDERED: Depo-Medrol 40 MG/ML IM ONE (13:58)
[2023-10-13 14:34] LABS: HCG URINE TEST NEGATIVE (NEGATIVE)
[2023-10-13] MEDS ORDERED: Lactated Ringers 1,000 ML IV ONE (15:19)
--- NOTE | 2023-10-13 17:37 | XRAY ---
Indication: Lumbar YEVGENIY. Intraoperative fluoroscopy provided for 20 seconds. 2 digital spot images submitted for interpretation demonstrates posterior needle tip projecting just posterior to lumbosacral junction interspace. Small amount of contrast injected for needle tip placement. Correlate with intraoperative findings/report.
--- NOTE | 2023-10-14 10:56 | XRAY ---
20 seconds of fluoroscopy was used in surgery for a lumbar YEVGENIY.
== END 2023-10-13 16:55 | disposition home or self-care (01) ==
LOC: SDC-PAIN 13:57
PROVIDERS: ATTEND Psychiatry & Neurology Pain Medicine
DX: M54.16 Radiculopathy, lumbar region (principal)
CPT/HCPCS: 62323; 72100; 77003; 81025; J1030; Q9966

== ENCOUNTER 2023-10-25 10:43 | Day surgery (SDC) | payer OTHER ==
--- NOTE | 2023-10-25 09:33 | HP ---
DATE OF SURGERY: 10/25/2023 HISTORY OF PRESENT ILLNESS: The patient is a 43-year-old with dysphagia mid to lower esophagus, chokes at times. No prior EGD. She had problems with anesthesia previously. PAST MEDICAL HISTORY: Hyperlipidemia, depression, arthritis, dysphagia, asthma, hypertension, gastroesophageal reflux disease. PAST SURGICAL HISTORY: LEEP. Right knee arthroscopy. MEDICATIONS: Ventolin HFA, stool softener on occasion, omeprazole, multivitamins, Flonase, Montelukast, cyanocobalamin, Breo Ellipta, Remicade, ammonium lactate. ALLERGIES: NKDA. FAMILY HISTORY: Negative for esophageal cancer. SOCIAL HISTORY: No smoking or alcohol abuse. REVIEW OF SYSTEMS: Twelve systems reviewed pertinent for significant BMI as well as multiple medical problems noted above. PHYSICAL EXAMINATION: Height 5 feet 5 inches. BMI 50.24. GENERAL: No acute distress. HEENT: Sclerae nonicteric. EOMI. Oral mucous membranes moist. NECK: No JVD. CHEST: Equal excursion, nonlabored breathing. CVS: Regular rate and rhythm. ABDOMEN: Soft, obese. EXTREMITIES: No significant edema. NEURO: Alert, oriented, moving extremities symmetrically. PSYCH: Appropriate mood and affect. SKIN: Dry. IMPRESSION: Dysphagia mid to lower esophagus. EGD possible biopsy possible dilatation. Risks and benefits explained in detail including but not limited to bleeding or infection, risk of bowel injury or perforation possibly requiring stent placement, possible open procedure, possibly no improvement in swallowing, possibly requiring other procedures, dilation or referral. Risk of possibly no narrowing to dilate, possible neurologic or functional problems or mechanical narrowing that dilatation may not benefit. If dilatation performed and improves swallowing may need repeated again down the road. The patient understood the above but not limited to and agrees to proceed with EGD possible biopsy possible dilatation. Otherwise, schedule outpatient under MAC anesthesia possible biopsy possible dilatation. Continue medication for hypertension, arthritis, gastroesophageal reflux disease and depression.
[2023-10-25] MEDS ORDERED: Lactated Ringers 1,000 ML IV ONE (10:56)
[2023-10-25 11:03] LABS: HCG URINE TEST NEGATIVE (NEGATIVE)
[2023-10-25] MEDS: Lactated Ringers 1,000 ML IV SCH (11:11)
[2023-10-25] MEDS ORDERED: DIPRIVAN 200 MG/20 ML IV ONE ×2 (12:59→13:10)
[2023-10-25] MEDS: PROVENTIL 2.5 MG/3 ML NEB IH ONE (13:23)
[2023-10-25 13:46] VITALS: RESP 16
[2023-10-25 13:59] VITALS: BP 121/87; PULSE 74; TEMP 98.3; O2SAT 97
--- NOTE | 2023-10-25 14:50 | OP ---
SURGERY DATE/TIME: 10/25/2023 1257 PREOPERATIVE DIAGNOSIS: Dysphagia. POSTOPERATIVE DIAGNOSES: 1) Gastric erythema. 2) Cold biopsy antrum to evaluate for early gastritis and Helicobacter pylori. 3) Tiny hiatal weakness or very tiny hiatal hernia. 4) Distal esophageal narrowing and spasm. PROCEDURES: 1) EGD with cold biopsy of antrum for Helicobacter pylori. 2) Cold biopsy distal esophagus for path. 3) Distal esophageal dilatation (size 20 balloon). SURGEON: Dr. Chan Easton M.D. ANESTHESIA: MAC. ESTIMATED BLOOD LOSS: Minimal. INDICATIONS: As noted above. Risks and benefits explained in detail and not limited to and consent obtained. DESCRIPTION OF PROCEDURE AND FINDINGS: The patient is taken to the endoscopy room. MAC anesthesia introduced. After official time out and no disagreement with planned procedure, bite block positioned. Video gastroscope easily passed down the esophagus to the patent pylorus to the junction of third and fourth portion of the duodenum. Proximal duodenum grossly unremarkable. No signs of any ulcers. Scope pulled back into the stomach. She had some gastric erythema. No evidence of any ulcers. Cold biopsy taken to evaluate for mild gastritis and Helicobacter pylori. Good hemostasis noted. On retroflex, she was kind of coughing and hacking. There was a trace hiatal weakness or very tiny hiatal hernia. The scope pulled back Gastroesophageal junction about 40 cm. Z-line was fairly crisp. Cold biopsy taken in the esophagus to evaluate for microscopic inflammation. She did have a distal esophageal narrowing and spasm in the area where she was having symptoms. It was felt this warranted attempt at dilatation. The scope passed back down the stomach. A 20 balloon catheter carefully inserted and then pulled back to the narrowed area and carefully inflated first stage for about 30 seconds, second stage for 30 seconds, final stage up to 2 minutes. The balloon catheter is then released and withdrawn. The scope much more easily passed through this area. No evidence of any full thickness issue or injury secondary to dilatation. The scope is withdrawn. The patient tolerated the procedure well. Findings discussed with the family out in the waiting area.
== END 2023-10-25 14:27 | disposition home or self-care (01) ==
LOC: SDC 10:43
PROVIDERS: ATTEND Surgery
DX: K22.2 Esophageal obstruction (principal); K29.70 Gastritis, unspecified, without bleeding; R13.10 Dysphagia, unspecified; K31.89 Other diseases of stomach and duodenum; K44.9 Diaphragmatic hernia without obstruction or gangrene
CPT/HCPCS: 81025; 94640; C1726; J2704; J7609; A9270-GY

== ENCOUNTER 2024-02-24 11:55 | Emergency (ER) | payer OTHER ==
[2024-02-24 12:06] VITALS: TEMP 97
[2024-02-24] MEDS ORDERED: BABY ASPIRIN 81 MG CHEW ONE (12:10)
[2024-02-24] MEDS ORDERED: Zofran 4 MG/2 ML VIAL ONE (12:10)
[2024-02-24] MEDS: BABY ASPIRIN 81 MG CHEW PO ONE (12:22)
[2024-02-24 12:28] LABS: Absolute Neutrophil Ct (ANC) 3.89 x10^3/uL (1.56-6.13); BASOPHIL % 0.9 % (0.1-1.2); Basophil (Absolute #) 0.06 x10^3/uL (0.01-0.08); Eosinophil % 4.7 % (0.7-5.8); Hematocrit 39.7 % (34.1-44.9); Hemoglobin 12.8 g/dL (11.2-15.7); IMMATURE GRAN # 0.02 x10^3u/L (0.001-0.031); IMMATURE GRAN % 0.3 % (0.001-0.429); Lymphocyte (Absolute #) 1.79 x10^3/uL (1.18-3.74); Lymphocytes % 28.2 % (19.3-51.7); Mean Cell Volume 84.1 fL (79.4-94.8); Mean Corpuscular Hemoglobin 27.1 pg (25.6-32.2); Mean Corpuscular Hgb Concent. 32.2 g/dL (32.2-35.5); Mean Platelet Volume 9.6 fL (9.4-12.3); Monocyte (Absolute #) 0.28 x10^3/uL (0.24-0.86); Monocytes % 4.4 % (4.7-12.5); Neutrophil % 61.5 % (34.0-71.1); Platelet Count 239 x10^3/uL (182-369); Red Blood Count 4.72 x10^6/uL (3.93-5.22); Red Cell Distribution Width 14.5 % (11.7-14.4); White Blood Count 6.3 x10^3/uL (3.98-10.04)
[2024-02-24] MEDS: Zofran 4 MG/2 ML VIAL IV ONE (12:29)
[2024-02-24 12:49] LABS: ISTAT CL 99 mmol/L (98-109); ISTAT CO2 29 mmol/L (24-29); ISTAT K 4.1 mmol/L (3.5-4.9); ISTAT NA 139 mmol/L (138-146); ISTAT iCA 1.19 mmol/L (1.12-1.32)
[2024-02-24 12:50] LABS: ISTAT BUN 18 mg/dL (8-26); ISTAT CREA 0.7 mg/dL (0.6-1.3); ISTAT GLUC 110 mg/dL (70-105)
--- NOTE | 2024-02-24 12:57 | XRAY ---
Indication: Chest pain. Comparison: February 08, 2024 Portable chest again demonstrates normal heart and lungs. Bony thorax intact. No new/acute findings.
[2024-02-24] MEDS ORDERED: SUBLIMAZE 100 MCG/2 ML ONE (12:58)
[2024-02-24] MEDS: SUBLIMAZE 100 MCG/2 ML IV ONE (12:59)
[2024-02-24 14:40] VITALS: RESP 18; O2SAT 99
--- NOTE | 2024-02-24 14:47 | XRAY ---
Indication: Right chest pain. Pulmonary embolus. Multiple contiguous axial images obtained through the chest using 100 cc Isovue 370 contrast and PE protocol. Comparison: None Adequate opacification of the pulmonary arteries to include lobar and segmental branches. Respiration artifact limits evaluation of the more distal lobar/segmental branches. No obvious pulmonary embolus. Heart not enlarged. Aorta is normal in course and caliber. No pathologic mediastinal/hilar lymphadenopathy. Small hiatal hernia. Lungs demonstrates minimal medial right lower lobe subpleural fibrosis/scarring. No suspicious pulmonary mass/nodule, infiltrate, or effusion. Bony thorax intact with mild degenerative changes mid thoracic spine. Limited upper abdomen demonstrates diffuse fatty liver and 14.1 cm splenomegaly. Impression: 1. Respiration artifact limits pulmonary embolus evaluation. No obvious pulmonary embolus. 2. Chronic findings including right lower lobe fibrosis/scarring small hiatal hernia, mild degenerative spondylosis, fatty liver, and splenomegaly. 3. Remaining CT chest with contrast exam is negative.
--- NOTE | 2024-02-24 16:22 | ERPHSYRPT ---
- History of Present Illness Time Seen by Provider: 02/24/24 12:02 Historian: patient Exam Limitations: no limitations Patient Subjective Stated Complaint: pt here for pain to left side of chest for 2 days, she was at clinic for UTI and sent here for pain Triage Nursing Assessment: pt alert. arrived per wc, able to get into bed with a cane, skin w/d/p. moves all ext , she has edema to lower legs that is normal for her Physician History: 43 years old morbidly obese female with history of arthritis, chronic lymphedema /bilateral lower extremity swelling presented in the ER with complains of right- sided chest pain since yesterday. Patient reports continuous dull aching to sharp pain 7/10 intensity without associated palpitations or shortness of breath. No fever or chills or cough reported. No history of coronary artery disease. Aspirin Treatment Today: 81 mg x 1 Allergies/Adverse Reactions: bee venom protein (honey bee) Allergy (Verified 02/24/24 12:03) methotrexate Allergy (Verified 02/24/24 12:03) tape Allergy (Severe, Uncoded 02/24/24 12:03) Blisters Home Medications: Cyanocobalamin (Vitamin B-12) [Vitamin B-12] 1,000 mcg PO DAILY 03/16/17 [History] Albuterol 8 gm Mdi Hfa [Ventolin Hfa MDI] 2 puffs IH DAILY PRN PRN 01/01/22 [History] Infliximab [Remicade Injection] 800 mg IV DIRECTIONS UNKNOWN 01/01/22 [History] Fluticasone/Vilanterol [Breo Ellipta 200-25 Mcg Inhalr] 1 blist IH DAILY 01/06/22 [History] Ammonium Lactate [Ammonium Lactate 12%] 1 applic TOP UD 10/11/23 [History] Docusate Sodium [Stool Softener] 100 mg PO DAILY 10/11/23 [History] Duloxetine HCl 30 mg [Cymbalta 30 MG Capsule] 30 mg PO HS 10/11/23 [History] EPINEPHrine [Auvi-Q] 0.1 mg SQ UD PRN 10/11/23 [History] Montelukast Sodium 10 mg [Singulair 10 MG] 10 mg PO DAILY 10/11/23 [History] Multivitamin [Daily Mary] 1 tab PO DAILY 10/11/23 [History] Omeprazole 20 mg PO DAILY 10/11/23 [History] Sertraline HCl 50 mg [Zoloft 50 mg Tablet] 25 mg PO DAILY 10/11/23 [History] Hx Tetanus, Diphtheria Vaccination/Date Given: No Hx Influenza Vaccination/Date Given: Yes Hx Pneumococcal Vaccination/Date Given: No Immunizations Up to Date: Yes Travel Risk - International Travel Have you traveled outside of the country in past 3 weeks: No - Emerging Infectious Disease Are you exhibiting symptoms associated with any current EIDs: No - Review of Systems Constitutional: No Symptoms Eyes: No Symptoms Ears, Nose, & Throat: No Symptoms Respiratory: No Symptoms Cardiac: Chest Pain Abdominal/Gastrointestinal: No Symptoms Genitourinary Symptoms: No Symptoms Musculoskeletal: Arthralgias, Back Pain Skin: No Symptoms Neurological: No Symptoms Hematologic/Lymphatic: No Symptoms Immunological/Allergic: No Symptoms - Past Medical History Pertinent Past Medical History: Yes Neurological History: No Pertinent History ENT History: No Pertinent History Cardiac History: High Cholesterol, Hypertension Respiratory History: Asthma Endocrine Medical History: No Pertinent History Musculoskeletal History: Arthritis GI Medical History: GERD History: No Pertinent History Psycho-Social History: No Pertinent History Female Reproductive Disorders: No Pertinent History Other Medical History: ANXIETY AND DEPRESSION - Past Surgical History Past Surgical History: Yes Neuro Surgical History: No Pertinent History Cardiac: No Pertinent History Respiratory: No Pertinent History Gastrointestinal: No Pertinent History Genitourinary: No Pertinent History Musculoskeletal: Orthopedic Surgery Female Surgical History: No Pertinent History Other Surgical History: Right Knee surgery. LEEP on 01/06/2022 - Female History Hx Last Menstrual Period: last week Hx Now: (unkn) - Social History Smoking Status: Never smoker Exposure to second hand smoke: No Drug Use: none Patient Lives Alone: No - Social Determinants of Health Will the patient participate in the screening: Yes Do you worry about a steady place to live?: No Do you have any problems with any of the following?: No known problems In the past 12 months,have you had to go without utilities?: No Transportation Issues: No Has anyone in your support network made you feel unsafe?: No Have you or anyone in your house had to go without enough: No - Nursing Vital Signs Nursing Vital Signs: Initial Vital Signs Temperature 97.0 F 02/24/24 12:06 Pulse Rate 77 06/27/24 12:06 Respiratory Rate 20 02/24/24 12:06 Blood Pressure 129/94 02/24/24 12:06 O2 Sat by Pulse Oximetry 100 02/24/24 12:06 Pain Scale Pain Intensity 3 - Physical Exam General Appearance: no apparent distress, alert Eye Exam: PERRL/EOMI Ears, Nose, Throat Exam: normal ENT inspection Neck Exam: normal inspection, full range of motion Respiratory Exam: normal breath sounds, lungs clear Cardiovascular Exam: regular rate/rhythm, normal heart sounds Gastrointestinal/Abdomen Exam: soft, normal bowel sounds, No tenderness Back Exam: normal inspection Extremity Exam: normal range of motion, pelvis stable Neurologic Exam: alert, oriented x 3, cooperative Skin Exam: normal color SpO2 Interpretation: normal SpO2: 99 O2 Delivery: Room Air - Course EKG Interpreted by Me: RATE ([id number]), Sinus Rhythm, NORMAL AXIS, NORMAL INTERVALS, NORMAL QRS Ordered Tests: Active Orders 24 hr Category Date Time Status Manager Meat STAT Care 02/24/24 12:05 Completed EKG-ER Only STAT Care 02/24/24 12:03 Completed IV Insertion STAT Care 02/24/24 12:03 Completed Oxygen-ED Only Nasal Cannula 2 lpm Care 02/24/24 12:03 Completed CHEST 1 VIEW (PORTABLE) Stat Exams 02/24/24 12:04 Completed CHEST WITH CONTRAST [CT] Stat Exams 02/24/24 13:53 Completed CBC W DIFF Stat Lab 02/24/24 12:25 Completed CK-Creatinine Phosphokinase Stat Lab 02/24/24 12:25 Completed D-DIMER QUANTITATIVE Stat Lab 02/24/24 13:22 Completed NT PRO BNPII Stat Lab 02/24/24 12:25 Completed TROPONIN Stat Lab 02/24/24 12:25 Completed Medication Summary Discontinued Medications Generic Name Dose Route Start Last Admin Trade Name Freq PRN Reason Stop Dose Admin Aspirin 324 mg 02/24/24 12:03 02/24/24 12:22 Aspirin 81 Mg Tab.Chew PO 02/24/24 12:04 324 mg STAT ONE Administration Aspirin Confirm 02/24/24 12:10 Aspirin 81 Mg Tab.Chew Administered 02/24/24 12:11 Dose 324 mg .ROUTE .STK-MED ONE Fentanyl Citrate 50 mcg 02/24/24 12:03 02/24/24 12:59 Fentanyl Citrate 100 Mcg/2 Ml* Vial IV 02/24/24 12:04 50 mcg STAT ONE Administration Fentanyl Citrate Confirm 02/24/24 12:58 Fentanyl Citrate 100 Mcg/2 Ml* Vial Administered 02/24/24 12:59 Dose 100 mcg .ROUTE .STK-MED ONE Ondansetron HCl 4 mg 02/24/24 12:03 02/24/24 12:29 Ondansetron Hcl 4 Mg/2 Ml Vial IV 02/24/24 12:04 4 mg STAT ONE Administration Ondansetron HCl Confirm 02/24/24 12:10 Ondansetron Hcl 4 Mg/2 Ml Vial Administered 02/24/24 12:11 Dose 4 mg .ROUTE .STK-MED ONE Lab/Rad Data: Laboratory Result Diagrams 02/24/24 12:25 02/24/24 12:25 Laboratory Results 02/24/24 02/24/24 02/24/24 Range/Units 15:15 13:22 12:25 WBC (3.98-10.04) x10^3/uL RBC (3.93-5.22) x10^6/uL Hgb (11.2-15.7) g/dL Hct (34.1-44.9) % MCV (79.4-94.8) fL MCH (25.6-32.2) pg MCHC (32.2-35.5) g/dL RDW (11.7-14.4) % Plt Count (182-369) x10^3/uL MPV (9.4-12.3) fL Gran % (34.0-71.1) % Immature Gran % (Auto) (0.001-0.429) % Nucleat RBC Rel Count (0.00-0.2) % Eos # (Auto) (0.04-0.36) x10^3/uL Immature Gran # (Auto) (0.001-0.031) x10^3u/L Absolute Lymphs (auto) (1.18-3.74) x10^3/uL Absolute Monos (auto) (0.24-0.86) x10^3/uL Absolute Nucleated RBC (0.00-0.012) x10^3u/L Lymphocytes % (19.3-51.7) % Monocytes % (4.7-12.5) % Eosinophils % (0.7-5.8) % Basophils % (0.1-1.2) % Absolute Granulocytes (1.56-6.13) x10^3/uL Basophils # (0.01-0.08) x10^3/uL D-Dimer 0.96 H* (0.0-0.50) mg/L Sodium Direct 139 (138-146) mmol/L Potassium 4.1 (3.5-4.9) mmol/L Chloride 99 (98-109) mmol/L Carbon Dioxide 29 (24-29) mmol/L Venous BUN 18 (8-26) mg/dL Creatinine 0.7 (0.6-1.3) mg/dL Glucose 110 H (70-105) mg/dL Ionized Calcium 1.19 (1.12-1.32) mmol/L Creatine Kinase Not Reportable Troponin 0.00 (0.00-0.03) ng/mL NT-Pro-B Natriuret Pep Not Reportable 02/24/24 Range/Units 12:25 WBC 6.3 (3.98-10.04) x10^3/uL RBC 4.72 (3.93-5.22) x10^6/uL Hgb 12.8 (11.2-15.7) g/dL Hct 39.7 (34.1-44.9) % MCV 84.1 (79.4-94.8) fL MCH 27.1 (25.6-32.2) pg MCHC 32.2 (32.2-35.5) g/dL RDW 14.5 H (11.7-14.4) % Plt Count 239 (182-369) x10^3/uL MPV 9.6 (9.4-12.3) fL Gran % 61.5 (34.0-71.1) % Immature Gran % (Auto) 0.3 (0.001-0.429) % Nucleat RBC Rel Count 0.0 (0.00-0.2) % Eos # (Auto) 0.30 (0.04-0.36) x10^3/uL Immature Gran # (Auto) 0.02 (0.001-0.031) x10^3u/L Absolute Lymphs (auto) 1.79 (1.18-3.74) x10^3/uL Absolute Monos (auto) 0.28 (0.24-0.86) x10^3/uL Absolute Nucleated RBC 0.00 (0.00-0.012) x10^3u/L Lymphocytes % 28.2 (19.3-51.7) % Monocytes % 4.4 L (4.7-12.5) % Eosinophils % 4.7 (0.7-5.8) % Basophils % 0.9 (0.1-1.2) % Absolute Granulocytes 3.89 (1.56-6.13) x10^3/uL Basophils # 0.06 (0.01-0.08) x10^3/uL D-Dimer (0.0-0.50) mg/L Sodium Direct (138-146) mmol/L Potassium (3.5-4.9) mmol/L Chloride (98-109) mmol/L Carbon Dioxide (24-29) mmol/L Venous BUN (8-26) mg/dL Creatinine (0.6-1.3) mg/dL Glucose (70-105) mg/dL Ionized Calcium (1.12-1.32) mmol/L Creatine Kinase Troponin (0.00-0.03) ng/mL NT-Pro-B Natriuret Pep - Progress Progress: re-examined Air Movement: good Progress Note: 02/24/24 16:20 43-year-old is evaluated in the ER for right sided chest pain with no difficulty breathing. This has been going on since yesterday. EKG is normal sinus rhythm with no acute ischemic changes/ST elevations. Negative troponins x 2. Elevated D-dimer and CTA is grossly negative for PE. Patient has normal white count, fairly unremarkable chemistries. Given symptomatic treatment, on reevaluation she is pain-free. She has no history of coronary artery disease in the past. Her pain has some element of reproducibility as well. With pain going on for more than 24 hours and negative troponins x 2, do not think patient needs to be admitted but recommended outpatient follow-up with PCP and c ardiology. Discussed signs symptoms of worsening needing return to ER which she seems understanding. Counseled pt/family regarding: lab results, diagnosis, need for follow-up, rad results Medical Desision Making - Diagnostic Testing Diagnostic test were ordered, analyzed, and reviewed by me: Yes Radiological Interpretation: Reviewed by me - Risk of complications The pt has a mod risk of morbidity or mortality based on: Need for prescription drug management - Departure Departure Disposition: Home Clinical Impression: Atypical chest pain Condition: Stable Critical Care Time: No Referrals: ABBY SAMUELS MD [Primary Care Provider] - Follow up with PCP 1 day GILLIAN CINTRON [CONSULTING PHYSICIAN] - Follow up other (Call for appointment for reevaluation) Instructions: Angina (DC), Chest Pain (DC) Additional Instructions: Take Tylenol as needed. Follow-up with primary care/cardiology for reevaluation. Return to ER for worsening pain or if having difficulty breathing etc.
[2024-02-24 16:36] VITALS: BP 138/68; PULSE 80
== END 2024-02-24 16:36 | disposition home or self-care (01) ==
LOC: ED 11:55
DX: R07.89 Other chest pain (principal); E78.5 Hyperlipidemia, unspecified; I10 Essential (primary) hypertension; Z79.899 Other long term (current) drug therapy
CPT/HCPCS: 36000; 36415; 71045; 71260; 80047; 82550; 83880; 84484; 85025; 85379; 93005; 93041; 96374; 96375; 99284; J2405; J3010; A9270-GY